=== PATIENT | male | born 1980 | race Caucasian/White ===

== ENCOUNTER 2017-02-03 06:37 | Emergency (ER) | payer MEDICAID ==
[~2017-02-03 06:37] MED LIST: GUAI100L5 PO; MUCI30TA2 PO; SUDA30TA2 PO; ZITHTAB PO
[2017-02-03] MEDS ORDERED: ALEV220T14 PO (06:47)
[2017-02-03] MEDS ORDERED: KETOROLAC TROMETHAMINE 60 MG/2 ML (IM) VIAL IM ONE (07:00)
[2017-02-03] MEDS ORDERED: LORazepam 2 MG/ML VIAL IM ONE (07:00)
[2017-02-03] MEDS ORDERED: CYCL1TAB29 PO (07:02)
[2017-02-03] MEDS ORDERED: ULTR50TA5 PO (07:02)
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
--- NOTE | 2017-02-03 07:30 | RADRPT ---
EXAM DATE/TIME: 02/03/2017 07:13 [facility] COMPARISON: No previous studies available for comparison. INDICATIONS : Right hip pain, post fall 1 week ago, right leg is numb this morning. MEDICAL HISTORY : fractured spine SURGICAL HISTORY : None. ENCOUNTER: Initial ACUITY: 1 week PAIN SCORE: 9/10 LOCATION: Right hip FINDINGS: A single frontal view of the pelvis demonstrates no evidence of fracture. The bony pelvic ring is in tact. Bony mineralization is normal. The soft tissues are intact. CONCLUSION: Unremarkable examination of the pelvis. Julio Cesar Bucio MD on February 03, 2017 at 7:26 Board Certified Radiologist. This report was verified electronically.
== END 2017-02-03 07:42 | disposition home or self-care (01) ==
LOC: PHED 06:37
DX: M54.41 Lumbago with sciatica, right side (principal)
CPT/HCPCS: 72170; 96372; 99284; J1885; J2060